=== PATIENT | female | born 1990 | race Caucasian/White ===

== ENCOUNTER 2017-01-08 08:40 | Inpatient (IN) ==
[2017-01-07 11:13] LABS: MANUAL DIFF NEEDED? NO
[2017-01-07 11:25] LABS: BASO% 0.2 % (0.0-0.8); EOS# 0.12 X1000 (0.0-0.7); EOS% 1.3 % (0.0-10.0); HEMATOCRIT 33.8 % (37.0-47.0); HEMOGLOBIN 11.5 g/dL (12.0-16.0); IMM GRAN# 0.03 X1000 (0.0-0.04); IMM GRAN% 0.3 % (0.0-0.5); LYMPH# 2.14 X1000 (1.2-3.4); LYMPH% 23.1 % (20.5-51.1); MCH 31.2 PG (27-31); MCV 91.6 FL (81-99); MONO% 6.5 % (1.7-9.3); MPV 10.5 FL (7.4-10.4); NEUT% 68.6 % (42.2-75.2); PLT 202 X1000 (130-400); RBC 3.69 XMIL (4.2-5.4)
[2017-01-08] MEDS ORDERED: REGLAN PO ONE (09:02)
[2017-01-08] MEDS ORDERED: LR 500 ML IV ONE (09:02)
[2017-01-08] MEDS ORDERED: LR 1,000 ML IV SCH (09:02)
[2017-01-08] MEDS ORDERED: KEFZOL 1 GM/D5W 1 GM/50 ML IVPB IV PRN (09:02)
[2017-01-08] MEDS ORDERED: PEPCID PO ONE (09:02)
[2017-01-08] MEDS ORDERED: ZOFRAN IV ONE (12:00)
[2017-01-08] MEDS ORDERED: SODIUM CHLORIDE 0.9% INJ ONE (12:00)
[2017-01-08] MEDS ORDERED: BICITRA PO ONE (12:00)
[2017-01-08] MEDS ORDERED: PEPCID IV ONE (12:00)
[2017-01-08] MEDS ORDERED: HYDROXYZINE IM PRN (12:58)
[2017-01-08] MEDS ORDERED: M-M-R II VACCINE SUBQ ONE (12:58)
[2017-01-08] MEDS ORDERED: DULCOLAX PR PRN (12:58)
[2017-01-08] MEDS ORDERED: PITOCIN 20 UNITS/LR 20 UNITS/1,000 ML IV.SOLN IV ONE (12:58)
[2017-01-08] MEDS ORDERED: PITOCIN IM PRN (12:58)
[2017-01-08] MEDS ORDERED: DEMEROL IM PRN (12:58)
[2017-01-08] MEDS ORDERED: AMBIEN PO PRN (12:58)
[2017-01-08] MEDS ORDERED: CYTOTEC PO PRN (12:58)
[2017-01-08] MEDS ORDERED: MYLICON PO PRN (12:58)
[2017-01-08] MEDS ORDERED: BOOSTRIX VACCINE IM ONE (12:58)
[2017-01-08] MEDS ORDERED: PERCOCET-5 PO PRN (12:58)
[2017-01-08] MEDS ORDERED: DEMEROL PO PRN ×2 (12:58)
[2017-01-08] MEDS ORDERED: HYDROXYZINE PO PRN (12:58)
[2017-01-08] MEDS ORDERED: DURAMORPH ONE (13:13)
[2017-01-08] MEDS ORDERED: ROBINUL ONE (14:10)
[2017-01-08] MEDS ORDERED: PITOCIN ONE (14:10)
[2017-01-08] MEDS ORDERED: NEO-SYNEPHRINE ONE (14:10)
[2017-01-08] MEDS ORDERED: ZOFRAN ONE (14:10)
[2017-01-08] MEDS ORDERED: MORPHINE IV PRN (14:47)
[2017-01-08] MEDS ORDERED: ZOFRAN IV PRN ×2 (14:47)
[2017-01-08] MEDS ORDERED: BENADRYL IV PRN (14:47)
[2017-01-08] MEDS ORDERED: ZOFRAN ODT PO PRN (14:47)
[2017-01-08] MEDS ORDERED: NARCAN INJ PRN (14:47)
[2017-01-08] MEDS: TORADOL IV PRN ×2 (15:44→22:26)
[2017-01-08] MEDS ORDERED: METHERGINE IM ONE (16:30)
[2017-01-08] MEDS: PHENERGAN IM PRN (18:30)
[2017-01-08] MEDS: PITOCIN 10 UNITS/LR 10 UNIT/1,000 ML IV.SOLN IV SCH (19:29)
[2017-01-08] MEDS ORDERED: METHERGINE PO SCH (21:00)
[2017-01-08] MEDS: MYLICON PO SCH (21:11)
[2017-01-08] MEDS: PERICOLACE PO SCH (21:11)
[2017-01-08] MEDS: METHERGINE PO SCH (22:20)
[2017-01-09] MEDS: PITOCIN 10 UNITS/LR 10 UNIT/1,000 ML IV.SOLN IV SCH (03:27)
[2017-01-09] MEDS: METHERGINE PO SCH ×3 (03:29→15:10)
[2017-01-09] MEDS: PERCOCET-10 PO PRN ×4 (04:22→19:46)
[2017-01-09] MEDS: TORADOL IV PRN ×2 (04:27→10:49)
[2017-01-09 04:56] LABS: HEMATOCRIT 24.7 % (37.0-47.0); HEMOGLOBIN 8.1 g/dL (12.0-16.0); MCH 30.7 PG (27-31); MCHC 32.8 g/dL (33-37); MCV 93.6 FL (81-99); MPV 10.7 FL (7.4-10.4); RBC 2.64 XMIL (4.2-5.4)
[2017-01-09] MEDS: MYLICON PO SCH ×8 (09:18→23:48)
[2017-01-09] MEDS: MOTRIN PO PRN ×2 (10:56→19:45)
[2017-01-09 12:46] LABS: HEMATOCRIT 24.7 % (37.0-47.0); HEMOGLOBIN 8.3 g/dL (12.0-16.0); MCH 31.2 PG (27-31); MCHC 33.6 g/dL (33-37); MCV 92.9 FL (81-99); MPV 10.6 FL (7.4-10.4); RBC 2.66 XMIL (4.2-5.4)
[2017-01-09] MEDS ORDERED: LR 1,000 ML IV SCH (12:58)
[2017-01-09] MEDS: PERICOLACE PO SCH (22:08)
[2017-01-09] MEDS: PHENERGAN IM PRN (22:09)
[2017-01-10] MEDS: MOTRIN PO PRN ×3 (04:05→20:18)
[2017-01-10] MEDS: PERCOCET-10 PO PRN ×5 (04:05→23:52)
[2017-01-10] MEDS: MYLICON PO SCH ×6 (09:06→20:19)
[2017-01-10] MEDS: PERICOLACE PO SCH (23:52)
[2017-01-11 00:22] VITALS: BP 98/55
[2017-01-11] MEDS: PERCOCET-10 PO PRN (07:07)
[2017-01-11] MEDS: MOTRIN PO PRN (07:07)
[2017-01-11] MEDS: MYLICON PO SCH ×2 (09:24)
== END 2017-01-11 11:10 | disposition home or self-care (01) ==
LOC: P.LD 08:40 → P.WC 16:39 → P.LD 18:47
PROVIDERS: ADMIT Obstetrics & Gynecology; ATTEND Obstetrics & Gynecology